=== PATIENT | male | born 1940 | race Caucasian/White ===

== ENCOUNTER 2023-03-20 09:58 | Emergency (ER) | payer OTHER, MEDICARE, BC | END 2023-03-20 12:04 | disposition home or self-care (01) | LOC: ERS 09:58 | DX: S50.02XA Contusion of left elbow, initial encounter (principal); I10 Essential (primary) hypertension; E78.5 Hyperlipidemia, unspecified; Z79.899 Other long term (current) drug therapy; Z79.82 Long term (current) use of aspirin; W01.0XXA Fall on same level from slipping, tripping and stumbling without subsequent striking against object, initial encounter; Y92.099 Unspecified place in other non-institutional residence as the place of occurrence of the external cause | CPT/HCPCS: 70450 ==

== ENCOUNTER 2023-03-22 06:45 | Inpatient (IN) | payer MEDICARE, BC ==
[2023-03-22 07:23] LABS: #Monocytes 0.8 thou/uL (0.11-0.59); #Neutrophils 10.1 thou/uL (1.40-6.50); %Basophils 0.2 % (0.0-1.0); %Eosinophils 0.1 % (0.0-10.0); %Lymphocytes 5.4 % (21.0-51.0); %Monocytes 7.2 % (0.0-10.0); %Neutrophils 86.6 % (42.0-75.0); Hematocrit 32.2 % (42.0-52.0); Hemoglobin 11.7 g/dL (14.0-18.0); Mean Corpuscular HGB CONC 36.3 g/dL (32.0-36.0); Mean Corpuscular Hemoglobin 32.8 pg (27.0-31.0); Mean Corpuscular Volume 90.2 fl (78.0-98.0); Mean Platelet Volume 10.3 fL (7.4-10.4); Platelet Count 225 10x3/uL (130-400); RBC Distribution Width 13.4 % (11.5-14.5); Red Blood Cell (RBC) Count 3.57 mill/uL (4.70-6.10); White Blood Cell (WBC) Count 11.7 10x3/uL (4.8-10.8)
[2023-03-22 07:45] LABS: ALT (SGPT) 21 U/L (8-55); AST (SGOT) 31 U/L (5-34); Albumin 4.5 g/dL (3.4-4.8); Alkaline Phosphatase 64 U/L (40-110); Anion Gap 19 mmol/L (10-20); BUN (Urea Nitrogen) 58 mg/dL (8.4-25.7); Calc. Creatinine Clearance 0 mL/min (70-130); Calcium 10.9 mg/dL (7.8-10.44); Carbon Dioxide 36 mmol/L (23-31); Chloride 82 mmol/L (98-107); Estimated GFR 29; Glucose 143 mg/dL (83-110); Potassium 2.7 mmol/L (3.5-5.1); Protein, Total 7.5 g/dL (5.8-8.1); Sodium 134 mmol/L (136-145)
[2023-03-22 07:45] LABS: Bacteria/HPF None Seen HPF (None Seen); Bilirubin Negative (Negative); Blood, Urine Negative (Negative); CAUTI Indications for Culture Alt mental st,lethar; Clarity Clear (Clear); Glucose, Urine (Dipstick) Normal (Negative); Ketone, Urine Negative (Negative); Leukocyte Negative Leu/uL (Negative); Nitrite Negative (Negative); Protein, Urine (Dipstick) 20 mg/dL (Neg-Trace); RBC/HPF 0-3 HPF (0-3); Specific Gravity, Urine 1.015 (1.002-1.036); Squamous Epithelial None Seen HPF (0-3); Urobilinogen Normal mg/dL (Less than 2); WBC/HPF 0-3 HPF (0-3); pH, Urine 6.5 (5.0-9.0)
[2023-03-22 07:51] LABS: Urine Culture Reflex No No
[2023-03-22 07:56] LABS: Troponin I 0.161 ng/mL (< 0.028)
[2023-03-22] MEDS ORDERED: Potassium Chloride 20 MEQ TAB ONE (08:09)
[2023-03-22] MEDS ORDERED: Aspirin Chewable 81 MG TAB ONE (08:16)
[2023-03-22] MEDS ORDERED: Nitroglycerin 0.4 MG TAB (25 Tab Bottle) SL PRN (08:45)
[2023-03-22] MEDS ORDERED: Calcium Carbonate 500 MG ChewTAB PO PRN (08:49)
[2023-03-22] MEDS ORDERED: Senokot S 8.6-50 MG TAB PO PRN (08:49)
[2023-03-22 09:27] LABS: Magnesium 2.4 mg/dL (1.6-2.6)
[2023-03-22] MEDS ORDERED: hydrALAZINE 25 MG TAB PO PRN (09:44)
[2023-03-22] MEDS ORDERED: NS 0.9% w/ 40 MEQ KCL 1,000 ML IV SCH (10:00)
[2023-03-22] MEDS: NS 0.9% w/ 20 MEQ KCL 1,000 ML/1,000 ML BAG IV SCH ×2 (10:42→21:00)
[2023-03-22] MEDS ORDERED: Famotidine 20 MG TAB ONE (11:13)
[2023-03-22] MEDS: Famotidine 20 MG TAB PO SCH ×2 (11:14→21:01)
[2023-03-22 11:41] LABS: Troponin I 0.148 ng/mL (< 0.028)
[2023-03-22] MEDS ORDERED: Potassium Chloride 20 MEQ TAB PO SCH (12:00)
[2023-03-22 14:19] LABS: Troponin I 0.166 ng/mL (< 0.028)
[2023-03-22 15:28] VITALS: BMI 17.2
[2023-03-22] MEDS: Cyanocobalamin (Vitamin B-12) 1,000 MCG TAB PO SCH (21:01)
[2023-03-23 04:40] LABS: #Eosinphils 0.1 thou/uL (0.0-0.7); #Monocytes 0.6 thou/uL (0.11-0.59); #Neutrophils 4.9 thou/uL (1.40-6.50); %Basophils 0.3 % (0.0-1.0); %Eosinophils 1.4 % (0.0-10.0); %Monocytes 9.4 % (0.0-10.0); %Neutrophils 76.6 % (42.0-75.0); Hematocrit 31.7 % (42.0-52.0); Hemoglobin 10.9 g/dL (14.0-18.0); Mean Corpuscular HGB CONC 34.4 g/dL (32.0-36.0); Mean Corpuscular Hemoglobin 32.3 pg (27.0-31.0); Mean Platelet Volume 10.1 fL (7.4-10.4); Platelet Count 206 10x3/uL (130-400); RBC Distribution Width 13.9 % (11.5-14.5); Red Blood Cell (RBC) Count 3.37 mill/uL (4.70-6.10); White Blood Cell (WBC) Count 6.4 10x3/uL (4.8-10.8)
[2023-03-23 04:41] LABS: Mean Corpuscular Volume 94.1 fl (78.0-98.0)
[2023-03-23 05:06] LABS: ALT (SGPT) 15 U/L (8-55); AST (SGOT) 27 U/L (5-34); Albumin 3.9 g/dL (3.4-4.8); Alkaline Phosphatase 57 U/L (40-110); Anion Gap 12 mmol/L (10-20); BUN (Urea Nitrogen) 37 mg/dL (8.4-25.7); Bilirubin, Total 0.7 mg/dL (0.2-1.2); Calc. Creatinine Clearance 33 mL/min (70-130); Calcium 9.5 mg/dL (7.8-10.44); Carbon Dioxide 32 mmol/L (23-31); Chloride 94 mmol/L (98-107); Estimated GFR 51; Globulin 2.7 g/dL (2.4-3.5); Glucose 103 mg/dL (83-110); Potassium 3.2 mmol/L (3.5-5.1); Protein, Total 6.6 g/dL (5.8-8.1); Sodium 135 mmol/L (136-145)
[2023-03-23] MEDS ORDERED: Metoprolol Tartrate 5 MG/5 ML VIAL IVP SCH (06:30)
[2023-03-23] MEDS ORDERED: Electrolyte Replacement Protocol 1 EACH FS SCH (08:00)
[2023-03-23] MEDS ORDERED: Potassium Chloride 20 MEQ TAB PO SCH (08:30)
[2023-03-23] MEDS: Aspirin Chewable 81 MG TAB PO SCH (09:20)
[2023-03-23] MEDS: PARoxetine 20 MG TAB PO SCH (09:21)
[2023-03-23] MEDS: Famotidine 20 MG TAB PO SCH (09:21)
[2023-03-23] MEDS: Acetaminophen 325 MG TAB PO PRN ×2 (13:04→23:50)
[2023-03-23] MEDS: Lactated Ringer's 500 ML IV SCH ×2 (13:05→22:16)
[2023-03-23] MEDS: Cyanocobalamin (Vitamin B-12) 1,000 MCG TAB PO SCH (20:22)
[2023-03-23] MEDS ORDERED: Atorvastatin Calcium 40 MG TAB PO SCH (21:00)
[2023-03-24 04:59] LABS: Hemoglobin A1c 5.3 % (4.0-6.0)
[2023-03-24 05:15] LABS: Anion Gap 13 mmol/L (10-20); BUN (Urea Nitrogen) 27 mg/dL (8.4-25.7); Calc. Creatinine Clearance 42 mL/min (70-130); Calcium 9.4 mg/dL (7.8-10.44); Carbon Dioxide 30 mmol/L (23-31); Cardiac Risk 2.9 (Less than 4.5); Chloride 97 mmol/L (98-107); Cholesterol 135 mg/dl (< 200 Desired); Estimated GFR 68; Glucose 107 mg/dL (83-110); HDL Cholesterol 46 mg/dL (>60 Neg Risk); LDL Cholesterol, Calculated 69 mg/dL; Potassium 3.6 mmol/L (3.5-5.1); Sodium 136 mmol/L (136-145); Triglycerides 99 mg/dL (Less than 150)
[2023-03-24] MEDS ORDERED: Famotidine 20 MG TAB PO SCH (09:00)
[2023-03-24] MEDS: PARoxetine 20 MG TAB PO SCH (09:13)
[2023-03-24] MEDS: Aspirin Chewable 81 MG TAB PO SCH (09:14)
[2023-03-24] MEDS: Acetaminophen 325 MG TAB PO PRN (09:14)
[2023-03-24 15:46] VITALS: BP 148/70; TEMP 98.2
[2023-03-25] MEDS ORDERED: FLU VACC QS2023(65UP)/MF59C/PF 60 MCG/0.5 ML SYRINGE IM ONE (16:00)
== END 2023-03-24 18:59 | DRG 312 ==
LOC: ERS 06:45 → ERHOLD 08:32 → 2SW 14:24 → OBSVTOIN 03-23 16:29
PROVIDERS: ADMIT Internal Medicine; ATTEND Family Medicine
DX: I95.1 Orthostatic hypotension (principal); S42.302A Unspecified fracture of shaft of humerus, left arm, initial encounter for closed fracture; N17.9 Acute kidney failure, unspecified; E86.0 Dehydration; I12.9 Hypertensive chronic kidney disease with stage 1 through stage 4 chronic kidney disease, or unspecified chronic kidney disease; E78.5 Hyperlipidemia, unspecified; F32.A Depression, unspecified; N18.30 Chronic kidney disease, stage 3 unspecified; E83.52 Hypercalcemia; W18.30XA Fall on same level, unspecified, initial encounter; E78.00 Pure hypercholesterolemia, unspecified; E87.6 Hypokalemia; Z79.899 Other long term (current) drug therapy; Z98.890 Other specified postprocedural states
CPT/HCPCS: 36415; 70450; 80048; 80053; 80061; 81001; 82306; 82550; 83036; 83735; 84443; 84484; 85025; 93005; 93306; 93880; 94760; 96360; 96361; 96374; G0378; J1650; J3480; J7120

== ENCOUNTER 2023-04-27 10:04 | Inpatient (IN) | payer MEDICARE, BC ==
[2023-04-27 10:48] LABS: #Eosinphils 0.1 thou/uL (0.0-0.7); #Monocytes 0.5 thou/uL (0.11-0.59); #Neutrophils 4.7 thou/uL (1.40-6.50); %Basophils 0.5 % (0.0-1.0); %Eosinophils 2.1 % (0.0-10.0); %Lymphocytes 13.9 % (21.0-51.0); %Monocytes 7.6 % (0.0-10.0); %Neutrophils 75.4 % (42.0-75.0); Hemoglobin 10.4 g/dL (14.0-18.0); Mean Corpuscular HGB CONC 32.5 g/dL (32.0-36.0); Mean Corpuscular Hemoglobin 31.4 pg (27.0-31.0); Mean Corpuscular Volume 96.7 fl (78.0-98.0); Mean Platelet Volume 9.9 fL (7.4-10.4); Platelet Count 255 10x3/uL (130-400); RBC Distribution Width 14.7 % (11.5-14.5); Red Blood Cell (RBC) Count 3.31 mill/uL (4.70-6.10); White Blood Cell (WBC) Count 6.2 10x3/uL (4.8-10.8)
[2023-04-27 11:14] LABS: ALT (SGPT) 17 U/L (8-55); AST (SGOT) 18 U/L (5-34); Albumin 4.1 g/dL (3.4-4.8); Alkaline Phosphatase 138 U/L (40-110); Anion Gap 17 mmol/L (10-20); BUN (Urea Nitrogen) 16 mg/dL (8.4-25.7); Bilirubin, Total 0.7 mg/dL (0.2-1.2); Calc. Creatinine Clearance 0 mL/min (70-130); Calcium 9.4 mg/dL (7.8-10.44); Carbon Dioxide 26 mmol/L (23-31); Chloride 100 mmol/L (98-107); Estimated GFR 76; Globulin 2.6 g/dL (2.4-3.5); Glucose 85 mg/dL (83-110); Potassium 3.7 mmol/L (3.5-5.1); Protein, Total 6.7 g/dL (5.8-8.1); Sodium 139 mmol/L (136-145); Troponin I 0.057 ng/mL (< 0.028)
[2023-04-27 12:41] LABS: Bacteria/HPF 4+ HPF (None Seen); Bilirubin Negative (Negative); Blood, Urine Negative (Negative); CAUTI Indications for Culture Dysuria,urgency,freq; Clarity Turbid (Clear); Glucose, Urine (Dipstick) Normal (Negative); Ketone, Urine Negative (Negative); Leukocyte 500 Leu/uL (Negative); Nitrite Negative (Negative); Protein, Urine (Dipstick) Negative (Neg-Trace); RBC/HPF 0-3 HPF (0-3); Specific Gravity, Urine 1.009 (1.002-1.036); Squamous Epithelial None Seen HPF (0-3); Urobilinogen Normal mg/dL (Less than 2); WBC/HPF Greater than 50 HPF (0-3)
[2023-04-27 12:42] LABS: Urine Culture Reflex Yes Yes
[2023-04-27] MEDS ORDERED: Ondansetron ODT 4 MG TAB PO PRN (12:51)
[2023-04-27] MEDS ORDERED: Acetaminophen 325 MG TAB PO PRN (12:51)
[2023-04-27] MEDS ORDERED: cefTRIAXone (ROCEPHIN) 2 GM VIAL ONE (13:03)
[2023-04-27] MEDS ORDERED: Sodium Chloride 0.9% 100 ML ONE (13:03)
[2023-04-27 16:16] VITALS: BMI 17.4
[2023-04-27 17:20] LABS: Troponin I 0.055 ng/mL (< 0.028)
[2023-04-27] MEDS: Atorvastatin Calcium 10 MG TAB PO SCH (20:08)
[2023-04-28 04:26] LABS: #Eosinphils 0.3 thou/uL (0.0-0.7); #Monocytes 0.5 thou/uL (0.11-0.59); %Basophils 0.7 % (0.0-1.0); %Eosinophils 4.5 % (0.0-10.0); %Lymphocytes 13.5 % (21.0-51.0); %Monocytes 9.5 % (0.0-10.0); %Neutrophils 71.4 % (42.0-75.0); Hematocrit 28.5 % (42.0-52.0); Hemoglobin 9.3 g/dL (14.0-18.0); Mean Corpuscular HGB CONC 32.6 g/dL (32.0-36.0); Mean Corpuscular Hemoglobin 31.7 pg (27.0-31.0); Mean Corpuscular Volume 97.3 fl (78.0-98.0); Mean Platelet Volume 10.3 fL (7.4-10.4); Platelet Count 213 10x3/uL (130-400); RBC Distribution Width 14.8 % (11.5-14.5); Red Blood Cell (RBC) Count 2.93 mill/uL (4.70-6.10); White Blood Cell (WBC) Count 5.6 10x3/uL (4.8-10.8)
[2023-04-28 04:51] LABS: Anion Gap 13 mmol/L (10-20); BUN (Urea Nitrogen) 14 mg/dL (8.4-25.7); Calc. Creatinine Clearance 50 mL/min (70-130); Calcium 8.7 mg/dL (7.8-10.44); Carbon Dioxide 27 mmol/L (23-31); Chloride 103 mmol/L (98-107); Estimated GFR 83; Glucose 83 mg/dL (83-110); Potassium 3.6 mmol/L (3.5-5.1); Sodium 139 mmol/L (136-145)
[2023-04-28] MEDS: Aspirin Chewable 81 MG TAB PO SCH (09:19)
[2023-04-28] MEDS: Midodrine HCl 5 MG TAB PO SCH ×3 (09:19→20:33)
[2023-04-28] MEDS: cefTRIAXone\\ROCEPHIN 1 GM in Sodium Chloride 0.9% 100 ML IVPB SCH (13:59)
[2023-04-28] MEDS: Atorvastatin Calcium 10 MG TAB PO SCH (20:33)
[2023-04-29] MEDS: Aspirin Chewable 81 MG TAB PO SCH (09:12)
[2023-04-29] MEDS: Midodrine HCl 5 MG TAB PO SCH ×3 (09:13→20:21)
[2023-04-29] MEDS: cefTRIAXone\\ROCEPHIN 1 GM in Sodium Chloride 0.9% 100 ML IVPB SCH (12:42)
[2023-04-29] MEDS: Atorvastatin Calcium 10 MG TAB PO SCH (20:21)
[2023-04-30] MEDS: Midodrine HCl 5 MG TAB PO SCH ×3 (09:26→20:38)
[2023-04-30] MEDS: Aspirin Chewable 81 MG TAB PO SCH (09:26)
[2023-04-30] MEDS: cefTRIAXone\\ROCEPHIN 1 GM in Sodium Chloride 0.9% 100 ML IVPB SCH (13:16)
[2023-04-30] MEDS ORDERED: FLU VACC QS2023(65UP)/MF59C/PF 60 MCG/0.5 ML SYRINGE IM ONE (17:45)
[2023-04-30] MEDS: Atorvastatin Calcium 10 MG TAB PO SCH (20:38)
[2023-05-01] MEDS: Midodrine HCl 5 MG TAB PO SCH ×3 (08:57→20:21)
[2023-05-01] MEDS: Aspirin Chewable 81 MG TAB PO SCH (08:57)
[2023-05-01] MEDS: cefTRIAXone\\ROCEPHIN 1 GM in Sodium Chloride 0.9% 100 ML IVPB SCH (12:41)
[2023-05-01] MEDS: Atorvastatin Calcium 10 MG TAB PO SCH (20:21)
[2023-05-02] MEDS ORDERED: Metoprolol Tartrate 5 MG/5 ML VIAL IVP PRN (06:05)
[2023-05-02] MEDS: Midodrine HCl 5 MG TAB PO SCH ×3 (09:36→20:19)
[2023-05-02] MEDS: Aspirin Chewable 81 MG TAB PO SCH (09:36)
[2023-05-02] MEDS: cefTRIAXone\\ROCEPHIN 1 GM in Sodium Chloride 0.9% 100 ML IVPB SCH (13:57)
[2023-05-02] MEDS ORDERED: Amiodarone 200 MG TAB PO SCH (18:00)
[2023-05-02] MEDS: Atorvastatin Calcium 10 MG TAB PO SCH (20:19)
[2023-05-02] MEDS ORDERED: Apixaban 2.5 MG TAB PO SCH (21:00)
[2023-05-03] MEDS: Amiodarone 200 MG TAB PO SCH ×3 (08:51→21:05)
[2023-05-03] MEDS: Aspirin Chewable 81 MG TAB PO SCH (08:52)
[2023-05-03] MEDS: Midodrine HCl 5 MG TAB PO SCH ×3 (08:52→21:06)
[2023-05-03] MEDS: cefTRIAXone\\ROCEPHIN 1 GM in Sodium Chloride 0.9% 100 ML IVPB SCH (12:55)
[2023-05-03] MEDS: Atorvastatin Calcium 10 MG TAB PO SCH (21:06)
[2023-05-04] MEDS: Midodrine HCl 5 MG TAB PO SCH ×3 (09:45→20:51)
[2023-05-04] MEDS: Amiodarone 200 MG TAB PO SCH ×3 (09:45→20:51)
[2023-05-04] MEDS: Aspirin Chewable 81 MG TAB PO SCH (09:45)
[2023-05-04] MEDS: cefTRIAXone\\ROCEPHIN 1 GM in Sodium Chloride 0.9% 100 ML IVPB SCH (16:32)
[2023-05-04] MEDS: Atorvastatin Calcium 10 MG TAB PO SCH (20:51)
[2023-05-05 11:27] VITALS: BP 167/76; TEMP 98.2
[2023-05-05] MEDS: Amiodarone 200 MG TAB PO SCH (11:43)
[2023-05-05] MEDS: Midodrine HCl 5 MG TAB PO SCH (11:43)
[2023-05-05] MEDS: Aspirin Chewable 81 MG TAB PO SCH (11:43)
[2023-05-18] MEDS ORDERED: Amiodarone 200 MG TAB PO SCH (09:00)
[2023-06-01] MEDS ORDERED: Amiodarone 200 MG TAB PO SCH (09:00)
== END 2023-05-05 15:33 | disposition home or self-care (01) | DRG 312 ==
LOC: ERS 10:04 → 2SW 12:28 → OBSVTOIN 04-28 13:14
PROVIDERS: ADMIT Family Medicine; ATTEND Internal Medicine
DX: I95.1 Orthostatic hypotension (principal); N39.0 Urinary tract infection, site not specified; I48.92 Unspecified atrial flutter; I12.9 Hypertensive chronic kidney disease with stage 1 through stage 4 chronic kidney disease, or unspecified chronic kidney disease; E78.5 Hyperlipidemia, unspecified; N18.9 Chronic kidney disease, unspecified; F32.A Depression, unspecified; I48.91 Unspecified atrial fibrillation; E78.00 Pure hypercholesterolemia, unspecified; I35.0 Nonrheumatic aortic (valve) stenosis; Z98.890 Other specified postprocedural states; Z79.899 Other long term (current) drug therapy; Z79.82 Long term (current) use of aspirin
CPT/HCPCS: 36415; 71045; 80048; 80053; 81001; 82533; 84484; 85025; 87077; 87086; 87186; 93005; 93010; 96361; 96365; G0378; J0696; J1650; J3490

== ENCOUNTER 2023-05-22 20:57 | Emergency (ER) | payer MEDICARE, BC ==
[2023-05-22 22:15] LABS: #Eosinphils 0.2 thou/uL (0.0-0.7); #Monocytes 0.5 thou/uL (0.11-0.59); #Neutrophils 3.5 thou/uL (1.40-6.50); %Basophils 0.6 % (0.0-1.0); %Eosinophils 3.3 % (0.0-10.0); %Lymphocytes 14.7 % (21.0-51.0); %Monocytes 9.3 % (0.0-10.0); %Neutrophils 71.9 % (42.0-75.0); Hematocrit 31.7 % (42.0-52.0); Hemoglobin 10.3 g/dL (14.0-18.0); Mean Corpuscular HGB CONC 32.5 g/dL (32.0-36.0); Mean Corpuscular Hemoglobin 30.6 pg (27.0-31.0); Mean Corpuscular Volume 94.1 fl (78.0-98.0); Mean Platelet Volume 11.6 fL (7.4-10.4); Platelet Count 182 10x3/uL (130-400); RBC Distribution Width 14.2 % (11.5-14.5); Red Blood Cell (RBC) Count 3.37 mill/uL (4.70-6.10); White Blood Cell (WBC) Count 4.8 10x3/uL (4.8-10.8)
[2023-05-22 22:33] LABS: ALT (SGPT) 16 U/L (8-55); AST (SGOT) 31 U/L (5-34); Albumin 3.8 g/dL (3.4-4.8); Alkaline Phosphatase 116 U/L (40-110); Anion Gap 14 mmol/L (10-20); BUN (Urea Nitrogen) 21 mg/dL (8.4-25.7); Bilirubin, Total 1.3 mg/dL (0.2-1.2); Calc. Creatinine Clearance 0 mL/min (70-130); Calcium 9.1 mg/dL (7.8-10.44); Carbon Dioxide 26 mmol/L (23-31); Chloride 104 mmol/L (98-107); Estimated GFR 57; Globulin 2.5 g/dL (2.4-3.5); Glucose 92 mg/dL (83-110); Potassium 3.5 mmol/L (3.5-5.1); Protein, Total 6.3 g/dL (5.8-8.1); Sodium 140 mmol/L (136-145)
== END 2023-05-23 00:11 ==
LOC: ERS 20:57
DX: R53.1 Weakness (principal); I10 Essential (primary) hypertension
CPT/HCPCS: 36415; 70450; 80053; 85025; 93005

== ENCOUNTER 2023-06-30 03:33 | Emergency (ER) | payer BC, MEDICARE ==
[2023-06-30] MEDS ORDERED: Ipratropium/Albuterol 3 ML NEB ONE (05:41)
== END 2023-06-30 06:53 ==
LOC: ERS 03:33
DX: S42.292A Other displaced fracture of upper end of left humerus, initial encounter for closed fracture (principal); S43.015A Anterior dislocation of left humerus, initial encounter; I10 Essential (primary) hypertension; X58.XXXA Exposure to other specified factors, initial encounter
CPT/HCPCS: J7620

== ENCOUNTER 2023-10-21 19:09 | Inpatient (IN) | payer MEDICARE, OTHER ==
[~2023-10-21 19:09] MED LIST: Iopamidol-370 76% 500 ML MDV (1 ML CHARGE) ONE
[2023-10-21 20:29] LABS: #Basophils Less than 0.03 10x3/uL (0.0-0.2); %Basophils 0.3 % (0.0-1.0); %Eosinophils 1.7 % (0.0-10.0); %Lymphocytes 11.6 % (21.0-51.0); %Neutrophils 79.4 % (42.0-75.0); Hematocrit 34.3 % (42.0-52.0); Hemoglobin 11.1 g/dL (14.0-18.0); Mean Corpuscular HGB CONC 32.4 g/dL (32.0-36.0); Mean Corpuscular Hemoglobin 30.5 pg (27.0-31.0); Mean Corpuscular Volume 94.2 fL (78.0-98.0); Mean Platelet Volume 11.1 fL (7.4-10.4); Platelet Count 202 10x3/uL (130-400); RBC Distribution Width 14.2 % (11.5-14.5); Red Blood Cell (RBC) Count 3.64 mill/uL (4.70-6.10)
[2023-10-21 20:37] LABS: Globulin 3.1 g/dL (2.4-3.5)
[2023-10-21 20:42] LABS: ALT (SGPT) 24 U/L (8-55); AST (SGOT) 20 U/L (5-34); Albumin 3.4 g/dL (3.4-4.8); Alkaline Phosphatase 99 U/L (40-110); Anion Gap 17 mmol/L (10-20); BUN (Urea Nitrogen) 26 mg/dL (8.4-25.7); Bilirubin, Total 0.4 mg/dL (0.2-1.2); Calc. Creatinine Clearance 0 mL/min (70-130); Calcium 9.4 mg/dL (7.8-10.44); Carbon Dioxide 23 mmol/L (23-31); Chloride 107 mmol/L (98-107); Estimated GFR 58; Glucose 92 mg/dL (83-110); Potassium 3.7 mmol/L (3.5-5.1); Protein, Total 6.5 g/dL (5.8-8.1); Sodium 143 mmol/L (136-145)
[2023-10-21 20:54] LABS: INR-International Normal Ratio 1.1; PTT 30.7 sec (22.9-36.1); Prothrombin Time 13.7 sec (12.0-14.7)
[2023-10-21] MEDS ORDERED: Morphine 2 MG/ML VIAL ONE (21:34)
[2023-10-22] MEDS ORDERED: Glucagon 1 MG/ML KIT IM PRN (00:16)
[2023-10-22] MEDS ORDERED: Dextrose 5% in Water 1,000 ML IV PRN (00:16)
[2023-10-22] MEDS ORDERED: Dextrose 50% Abboject 50 ML SYRINGE SLOW IVP PRN (00:16)
[2023-10-22] MEDS ORDERED: Ondansetron ODT 4 MG TAB PO PRN (00:47)
[2023-10-22] MEDS ORDERED: Ondansetron PF 4 MG/2 ML Vial IVP PRN (00:47)
[2023-10-22] MEDS ORDERED: Ipratropium/Albuterol 3 ML NEB NEB PRN (00:47)
[2023-10-22] MEDS ORDERED: traMADol HCl 50 MG TAB PO PRN (00:47)
[2023-10-22] MEDS ORDERED: hydrALAZINE 20 MG/ML VIAL SLOW IVP PRN (00:47)
[2023-10-22 02:09] VITALS: BMI 18.5
[2023-10-22] MEDS: TETANUS, DIPHTHERIA TOX,ADULT (TDVAX) 0.5 ML VIAL IM ONE (04:55)
[2023-10-22] MEDS: Morphine 4 MG/ML VIAL SLOW IVP PRN (05:14)
[2023-10-22 05:55] LABS: #Basophils 0.04 10x3/uL (0.0-0.2); %Basophils 0.3 % (0.0-1.0); %Eosinophils 0.8 % (0.0-10.0); %Lymphocytes 3.9 % (21.0-51.0); %Monocytes 4.4 % (0.0-10.0); %Neutrophils 90.2 % (42.0-75.0); Hematocrit 30.2 % (42.0-52.0); Hemoglobin 10.1 g/dL (14.0-18.0); Mean Corpuscular HGB CONC 33.4 g/dL (32.0-36.0); Mean Corpuscular Hemoglobin 31.2 pg (27.0-31.0); Mean Corpuscular Volume 93.2 fL (78.0-98.0); Mean Platelet Volume 10.6 fL (7.4-10.4); Platelet Count 171 10x3/uL (130-400); RBC Distribution Width 14.2 % (11.5-14.5); Red Blood Cell (RBC) Count 3.24 mill/uL (4.70-6.10)
[2023-10-22 06:14] LABS: Anion Gap 15 mmol/L (10-20); BUN (Urea Nitrogen) 25 mg/dL (8.4-25.7); Calc. Creatinine Clearance 41 mL/min (70-130); Carbon Dioxide 23 mmol/L (23-31); Chloride 106 mmol/L (98-107); Estimated GFR 61; Glucose 98 mg/dL (83-110); Sodium 140 mmol/L (136-145)
[2023-10-22] MEDS: Famotidine 20 MG TAB PO SCH (08:40)
[2023-10-22] MEDS ORDERED: fentaNYL PF 100 MCG/2 ML SYRINGE ONE (09:16)
[2023-10-22] MEDS ORDERED: Lidocaine 2% PF 5 ML VIAL ONE (09:16)
[2023-10-22] MEDS ORDERED: PROPOFOL 20 ML ONE (09:16)
[2023-10-22] MEDS ORDERED: Phenylephrine 10 MG/ML VIAL ONE (09:19)
[2023-10-22] MEDS ORDERED: Morphine 2 MG/ML VIAL SLOW IVP PRN (09:24)
[2023-10-22] MEDS ORDERED: EPINEPHrine 1 MG/ML VIAL ONE (09:29)
[2023-10-22] MEDS ORDERED: Bupivacaine PF 0.5% 30 ML VIAL ONE (09:30)
[2023-10-22] MEDS ORDERED: Vancomycin 1 GM VIAL ONE ×2 (09:30→10:24)
[2023-10-22] MEDS ORDERED: CEFAZOLIN 1 GM VIAL ONE (10:14)
[2023-10-22] MEDS ORDERED: Tranexamic Acid 1,000 MG/10 ML VIAL ONE (10:30)
[2023-10-22] MEDS ORDERED: Promethazine HCl 25 MG/ML VIAL IM PRN (11:31)
[2023-10-22] MEDS ORDERED: Ondansetron HCl/PF 4 MG/2 ML Vial IVP PRN (11:31)
[2023-10-22] MEDS: Acetaminophen 325 MG TAB PO PRN (23:43)
[2023-10-23 07:05] LABS: #Basophils 0.04 10x3/uL (0.0-0.2); %Basophils 0.6 % (0.0-1.0); %Eosinophils 4.8 % (0.0-10.0); %Lymphocytes 7.6 % (21.0-51.0); %Monocytes 8.5 % (0.0-10.0); %Neutrophils 78.2 % (42.0-75.0); Hematocrit 34.7 % (42.0-52.0); Hemoglobin 10.5 g/dL (14.0-18.0); Mean Corpuscular HGB CONC 30.3 g/dL (32.0-36.0); Mean Corpuscular Hemoglobin 31.1 pg (27.0-31.0); Mean Corpuscular Volume 102.7 fL (78.0-98.0); Mean Platelet Volume 11.1 fL (7.4-10.4); Platelet Count 145 10x3/uL (130-400); RBC Distribution Width 14.3 % (11.5-14.5); Red Blood Cell (RBC) Count 3.38 mill/uL (4.70-6.10)
[2023-10-23 07:15] LABS: Globulin 2.8 g/dL (2.4-3.5)
[2023-10-23 07:20] LABS: ALT (SGPT) 14 U/L (8-55); AST (SGOT) 23 U/L (5-34); Albumin 2.8 g/dL (3.4-4.8); Alkaline Phosphatase 77 U/L (40-110); Anion Gap 15 mmol/L (10-20); BUN (Urea Nitrogen) 23 mg/dL (8.4-25.7); Calc. Creatinine Clearance 41 mL/min (70-130); Calcium 8.9 mg/dL (7.8-10.44); Carbon Dioxide 23 mmol/L (23-31); Chloride 105 mmol/L (98-107); Estimated GFR 59; Glucose 91 mg/dL (83-110); Potassium 4.2 mmol/L (3.5-5.1); Protein, Total 5.6 g/dL (5.8-8.1); Sodium 139 mmol/L (136-145)
[2023-10-23 10:12] VITALS: BMI 18.5
[2023-10-23] MEDS: Famotidine 20 MG TAB PO SCH (20:17)
[2023-10-23] MEDS: Enoxaparin 40 MG (0.4 mL) SYRINGE SC SCH (20:17)
[2023-10-24] MEDS: Midodrine HCl 5 MG TAB PO SCH (13:24)
[2023-10-24] MEDS: Atorvastatin Calcium 20 MG TAB PO SCH (21:08)
[2023-10-25] MEDS ORDERED: Aspirin Chewable 81 MG TAB PO SCH ×2 (09:00)
[2023-10-25] MEDS: Aspirin Chewable 81 MG TAB PO SCH (09:53)
[2023-10-25] MEDS: Amiodarone 200 MG TAB PO SCH (09:53)
[2023-10-26] MEDS: Polyethylene Glycol 3350 17 GM Packet PO SCH (10:04)
[2023-10-26] MEDS: Metamucil PACK PO SCH (10:04)
[2023-10-26] MEDS: Lactulose 20 GM (30 mL) UDCUP PO SCH (20:10)
[2023-10-27 15:38] VITALS: BP 158/78; TEMP 97.1
== END 2023-10-27 15:42 | DRG 522 ==
LOC: ERS 19:09 → SURG A 10-22 00:16
PROVIDERS: ADMIT Student in an Organized Health Care Education/Training Program; ATTEND Student in an Organized Health Care Education/Training Program
PROC: 0SRB0JZ Replacement of Left Hip Joint with Synthetic Substitute, Open Approach (ICD-10-PCS; principal; 2023-10-22)
PROC: 3E033XZ Introduction of Vasopressor into Peripheral Vein, Percutaneous Approach (ICD-10-PCS; 2023-10-22)
DX: S72.012A Unspecified intracapsular fracture of left femur, initial encounter for closed fracture (principal); S22.051A Stable burst fracture of T5-T6 vertebra, initial encounter for closed fracture; I48.92 Unspecified atrial flutter; W18.30XA Fall on same level, unspecified, initial encounter; E78.5 Hyperlipidemia, unspecified; F41.9 Anxiety disorder, unspecified; F32.A Depression, unspecified; S42.202D Unspecified fracture of upper end of left humerus, subsequent encounter for fracture with routine healing; F03.90 Unspecified dementia, unspecified severity, without behavioral disturbance, psychotic disturbance, mood disturbance, and anxiety; N18.9 Chronic kidney disease, unspecified; I12.9 Hypertensive chronic kidney disease with stage 1 through stage 4 chronic kidney disease, or unspecified chronic kidney disease; I95.1 Orthostatic hypotension
CPT/HCPCS: 36415; 70450; 71260; 72125; 74177; 80048; 80053; 85025; 85610; 85730; 90714; 93005; 94760; 96374; C1713; C1776; G0390; J0171; J0665; J0690; J1650; J2001; J2270; J2272; J2371; J2704; J3370; Q9967

== ENCOUNTER 2024-04-30 13:00 | Emergency (ER) | payer MEDICARE ==
[2024-04-30 14:07] LABS: Hemoglobin 7.3 g/dL (14.0-18.0); Mean Corpuscular HGB CONC 29.2 g/dL (32.0-36.0); Mean Corpuscular Volume 95.8 fL (78.0-98.0); Platelet Count 258 10x3/uL (130-400); RBC Distribution Width 15.1 % (11.5-14.5); Red Blood Cell (RBC) Count 2.61 mill/uL (4.70-6.10)
[2024-04-30 14:25] LABS: ALT (SGPT) 5 U/L (8-55); AST (SGOT) 23 U/L (5-34); Albumin 2.4 g/dL (3.4-4.8); Alkaline Phosphatase 66 U/L (40-110); Anion Gap 17 mmol/L (10-20); BUN (Urea Nitrogen) 31 mg/dL (8.4-25.7); Bilirubin, Total 0.7 mg/dL (0.2-1.2); Calc. Creatinine Clearance 0 mL/min (70-130); Calcium 7.8 mg/dL (7.8-10.44); Carbon Dioxide 26 mmol/L (23-31); Chloride 110 mmol/L (98-107); Estimated GFR 40; Glucose 75 mg/dL (83-110); Potassium 3.5 mmol/L (3.5-5.1); Protein, Total 5.4 g/dL (5.8-8.1); Sodium 149 mmol/L (136-145)
[2024-04-30 14:33] LABS: Anisocytosis SLIGHT = 6-15 cells HPF (0-5); Band 34 % (5-11); Hypochromia SLIGHT = 6-15 cells HPF (0-5); Lymphocytes 5 % (21-51); Macrocytosis SLIGHT = 6-15 cells HPF (0-5); Monocytes 5 % (0-10); Neutrophil 56 % (42-75); Ovalocytes SLIGHT = 2-5 cells HPF (0-1); Platelet Adequacy Comment Platelets Normal; Polychromasia SLIGHT = 2-3 cells HPF (0-2)
[2024-04-30 14:54] LABS: Troponin I 3.134 ng/mL (< 0.028)
== END 2024-04-30 14:07 | disposition expired ==
LOC: ERS 13:00
DX: I48.91 Unspecified atrial fibrillation (principal); I10 Essential (primary) hypertension; J96.00 Acute respiratory failure, unspecified whether with hypoxia or hypercapnia
CPT/HCPCS: 36415; 80053; 84484; 85025; 93005